=== PATIENT | female | born 1940 | race Caucasian/White ===

== ENCOUNTER → 2017-07-13 | Outpatient (CLI) | payer MEDICARE, OTHER | LOC: LAB SHORT 13:10 → OLS 13:10 | DX: R19.7 Diarrhea, unspecified (principal) | CPT/HCPCS: 87493 ==

== ENCOUNTER 2022-01-29 09:14 | Emergency (ER) | payer MEDICARE, OTHER ==
[~2022-01-29] VITALS: Ht 160 cm; Wt 59.0 kg
[2022-01-29 11:06] LABS: Hemoglobin 8.5 g/dL (11.5-16.0); Mean Corpuscular HGB 26.2 pg (26.0-34.0); Mean Corpuscular HGB Conc 32.7 g/dL (31.5-36.5); Mean Corpuscular Volume 80 fL (80-100); Mean Platelet Volume 9.5 fL (9.1-12.4); NRBC ABSOLUTE 0.05 K/mm3 (0.00-0.02); NRBC Auto 0.5 /100 WBC (0.0-0.2); Platelet Count 201 K/mm3 (150-400); RDW Coefficient Variation 17.7 % (11.7-14.2); RDW Standard Deviation 48.9 fL (35.1-46.3); Red Blood Cell Count 3.24 M/mm3 (3.80-5.20); White Blood Cell Count 9.47 K/mm3 (4.00-11.30)
[2022-01-29 11:11] LABS: International Normalized Ratio 1.06; Prothrombin Time Results 11.1 Sec (9.7-11.5)
[2022-01-29 11:30] LABS: BAND PERCENT MAN 4 % (0-8); BASOPHILS PERCENT MAN 0 % (0-2); EOSINOPHILS PERCENT MAN 0 % (0-6); LYMPHOCYTES % ATYPICAL MANUAL 1 % (0-0); LYMPHOCYTES ABSOLUTE MAN 0.66 K/mm3 (0.84-5.20); LYMPHOCYTES PERCENT MAN 6 % (21-46); MONOCYTES ABSOLUTE MAN 0.37 K/mm3 (0.16-1.47); MONOCYTES PERCENT MAN 4 % (4-13); NEUTROPHILS ABSOLUTE MAN 8.42 K/mm3 (1.96-9.15); SEG NEUTROPHILS PERCENT MAN 85 % (41-73); TOTAL CELLS COUNTED 100
[2022-01-29 11:43] LABS: Albumin, Blood 2.8 g/dL (3.4-5.0); Albumin/Globulin Ratio 0.7 (0.8-1.8); Bilirubin, Total 0.6 mg/dL (0.1-1.0); Bun/Creatinine Ratio 24.8 (12.0-20.0); Calcium, Blood 8.5 mg/dL (8.5-10.1); Creatinine, Blood 0.64 mg/dL (0.40-1.00); Globulin, Blood 3.8 g/dL (2.2-4.0); Potassium, Blood 4.1 mmol/L (3.5-5.5); Total Protein, Blood 6.6 g/dL (6.4-8.2)
[2022-01-29 14:13] LABS: IMMATURE RETIC FRACTION 35.9 % (2.3-16.0); RETIC HGB EQUIVALENT 31.6 pg (28.20-36.60); RETICULOCYTE ABSOLUTE 0.0521 M/mm3 (0.0200-0.1100); RETICULOCYTE COUNT PERCENT 1.67 % (0.50-2.50)
== END 2022-01-29 14:26 | disposition home or self-care (01) ==
LOC: ER 09:14
PROVIDERS: Emergency Medicine; Physician Assistant
DX: D64.9 Anemia, unspecified (principal); Z88.0 Allergy status to penicillin
CPT/HCPCS: 36415; 80053; 85025; 85045; 85610; 86850; 86900; 86901; 93005; 93010

== ENCOUNTER 2022-02-12 11:09 | Day surgery (SDC) | payer MEDICARE, OTHER ==
[~2022-02-12] VITALS: Ht 160 cm; Wt 57.4 kg
[2022-02-12] MEDS ORDERED: METF500 (11:41)
== END 2022-02-12 13:24 | disposition home or self-care (01) ==
LOC: ORSCSDS 11:09
PROVIDERS: Internal Medicine Gastroenterology
PROC: 0DJD8ZZ Inspection of Lower Intestinal Tract, Via Natural or Artificial Opening Endoscopic (ICD-10-PCS; principal; 2022-02-12 12:30)
PROC: 0DJ08ZZ Inspection of Upper Intestinal Tract, Via Natural or Artificial Opening Endoscopic (ICD-10-PCS; principal; 2022-02-12 12:30)
DX: D50.9 Iron deficiency anemia, unspecified (principal); Z85.038 Personal history of other malignant neoplasm of large intestine; Z80.0 Family history of malignant neoplasm of digestive organs; K29.70 Gastritis, unspecified, without bleeding; E11.9 Type 2 diabetes mellitus without complications; Z79.84 Long term (current) use of oral hypoglycemic drugs; Z79.899 Other long term (current) drug therapy
CPT/HCPCS: 82947; J0330; J0461; J2405; J2704; J7120; Q9968

== ENCOUNTER → 2022-02-16 | Outpatient (CLI) | payer MEDICARE, OTHER ==
[~2022-02-16] MED LIST: METF500
[2022-02-16 10:38] LABS: BASOPHILS ABSOLUTE AUTO 0.09 K/mm3 (0.00-0.23); BASOPHILS PERCENT AUTO 1 % (0-2); EOSINOPHILS ABSOLUTE AUTO 0.06 K/mm3 (0.00-0.68); EOSINOPHILS PERCENT AUTO 1 % (0-6); Hematocrit 26.8 % (33.0-51.0); Hemoglobin 8.6 g/dL (11.5-16.0); IMMATURE GRAN ABSOLUTE AUTO 0.06 K/mm3 (0.00-0.10); IMMATURE GRAN PERCENT AUTO 1 % (0-1); LYMPHOCYTES ABSOLUTE AUTO 3.25 K/mm3 (0.84-5.20); LYMPHOCYTES PERCENT AUTO 34 % (21-46); MONOCYTES ABSOLUTE AUTO 0.81 K/mm3 (0.16-1.47); MONOCYTES PERCENT AUTO 9 % (4-13); Mean Corpuscular HGB 27.2 pg (26.0-34.0); Mean Corpuscular HGB Conc 32.1 g/dL (31.5-36.5); Mean Corpuscular Volume 85 fL (80-100); Mean Platelet Volume 8.9 fL (9.1-12.4); NEUTROPHILS PERCENT AUTO 55 % (41-73); Platelet Count 672 K/mm3 (150-400); RDW Coefficient Variation 21.9 % (11.7-14.2); RDW Standard Deviation 67.3 fL (35.1-46.3); Red Blood Cell Count 3.16 M/mm3 (3.80-5.20); White Blood Cell Count 9.57 K/mm3 (4.00-11.30)
[2022-02-16 11:18] LABS: Percent Saturation 13.2 % (15.0-50.0)
== END | disposition home or self-care (01) ==
LOC: LAB SHORT 09:20
PROVIDERS: Physician Assistant Medical
DX: D50.8 Other iron deficiency anemias (principal)
CPT/HCPCS: 36415; 82728; 83540; 83550; 85025

== ENCOUNTER → 2022-04-16 | Outpatient (CLI) | payer MEDICARE, OTHER ==
[2022-04-16 16:12] LABS: Hematocrit 30.2 % (33.0-51.0); Hemoglobin 9.8 g/dL (11.5-16.0); Mean Corpuscular HGB Conc 32.5 g/dL (31.5-36.5); Mean Corpuscular Volume 80 fL (80-100); Mean Platelet Volume 9.9 fL (9.1-12.4); NRBC ABSOLUTE 0.12 K/mm3 (0.00-0.02); NRBC Auto 0.8 /100 WBC (0.0-0.2); Platelet Count 343 K/mm3 (150-400); RDW Standard Deviation 57.4 fL (35.1-46.3); Red Blood Cell Count 3.77 M/mm3 (3.80-5.20); White Blood Cell Count 14.37 K/mm3 (4.00-11.30)
[2022-04-16 16:26] LABS: Thyroxine (T4) 10.2 ug/dL (4.8-13.9)
[2022-04-16 16:39] LABS: Albumin, Blood 3.2 g/dL (3.4-5.0); Albumin/Globulin Ratio 0.8 (0.8-1.8); Bilirubin, Direct 0.2 mg/dL (0.0-0.3); Bilirubin, Indirect 0.3 mg/dL (0.1-0.7); Bilirubin, Total 0.5 mg/dL (0.1-1.0); Bun/Creatinine Ratio 14.8 (12.0-20.0); Calcium, Blood 8.8 mg/dL (8.5-10.1); Creatinine, Blood 0.54 mg/dL (0.40-1.00); Potassium, Blood 3.6 mmol/L (3.5-5.5); Thyroid Stimulating Hormone 5.05 uIU/mL (0.360-4.800); Total Protein, Blood 7.2 g/dL (6.4-8.2)
[2022-04-16 16:48] LABS: BAND PERCENT MAN 3 % (0-8); BASOPHILS PERCENT MAN 0 % (0-2); EOSINOPHILS ABSOLUTE MAN 0.28 K/mm3 (0.00-0.68); EOSINOPHILS PERCENT MAN 2 % (0-6); LYMPHOCYTES ABSOLUTE MAN 2.73 K/mm3 (0.84-5.20); LYMPHOCYTES PERCENT MAN 19 % (21-46); METAMYELOCYTE ABSOLUTE MAN 0.28 K/mm3 (0.00-0.00); METAMYELOCYTE PERCENT MAN 2 % (0-0); MONOCYTES PERCENT MAN 7 % (4-13); NEUTROPHILS ABSOLUTE MAN 10.05 K/mm3 (1.96-9.15); SEG NEUTROPHILS PERCENT MAN 67 % (41-73); TOTAL CELLS COUNTED 100
== END | disposition home or self-care (01) ==
LOC: LAB SHORT 15:44
PROVIDERS: Family Medicine
DX: C22.0 Liver cell carcinoma (principal); E03.9 Hypothyroidism, unspecified; R19.7 Diarrhea, unspecified; R63.4 Abnormal weight loss
CPT/HCPCS: 80053; 82248; 84436; 84443; 85025

== ENCOUNTER 2022-04-24 13:11 | Inpatient (IN) | payer MEDICARE, OTHER ==
[~2022-04-24] VITALS: Ht 160 cm; Wt 60.5 kg
[~2022-04-24 13:11] MED LIST changes: +METF500 PO
[2022-04-24 14:18] LABS: Hematocrit 29.7 % (33.0-51.0); Hemoglobin 9.4 g/dL (11.5-16.0); Mean Corpuscular HGB Conc 31.6 g/dL (31.5-36.5); White Blood Cell Count 12.14 K/mm3 (4.00-11.30)
[2022-04-24 14:27] LABS: Mean Corpuscular HGB 25.2 pg (26.0-34.0); Mean Corpuscular Volume 80 fL (80-100); Mean Platelet Volume 9.5 fL (9.1-12.4); NRBC ABSOLUTE 0.15 K/mm3 (0.00-0.02); NRBC Auto 1.2 /100 WBC (0.0-0.2); Platelet Count 339 K/mm3 (150-400); RDW Standard Deviation 56.6 fL (35.1-46.3); Red Blood Cell Count 3.73 M/mm3 (3.80-5.20)
[2022-04-24 14:51] LABS: Albumin, Blood 2.8 g/dL (3.4-5.0); Albumin/Globulin Ratio 0.7 (0.8-1.8); Bilirubin, Total 0.5 mg/dL (0.1-1.0); Bun/Creatinine Ratio 7.8 (12.0-20.0); Calcium, Blood 8.8 mg/dL (8.5-10.1); Creatinine, Blood 0.51 mg/dL (0.40-1.00); Globulin, Blood 4.2 g/dL (2.2-4.0); Potassium, Blood 3.2 mmol/L (3.5-5.5)
[2022-04-24 15:08] LABS: BAND PERCENT MAN 1 % (0-8); BASOPHILS ABSOLUTE MAN 0.12 K/mm3 (0.00-0.23); BASOPHILS PERCENT MAN 1 % (0-2); EOSINOPHILS ABSOLUTE MAN 0.24 K/mm3 (0.00-0.68); EOSINOPHILS PERCENT MAN 2 % (0-6); LYMPHOCYTES % ATYPICAL MANUAL 1 % (0-0); LYMPHOCYTES ABSOLUTE MAN 3.03 K/mm3 (0.84-5.20); LYMPHOCYTES PERCENT MAN 24 % (21-46); METAMYELOCYTE ABSOLUTE MAN 0.36 K/mm3 (0.00-0.00); METAMYELOCYTE PERCENT MAN 3 % (0-0); MONOCYTES ABSOLUTE MAN 0.24 K/mm3 (0.16-1.47); MONOCYTES PERCENT MAN 2 % (4-13); MYELOCYTE PERCENT MAN 5 % (0-0); NEUTROPHILS ABSOLUTE MAN 7.52 K/mm3 (1.96-9.15); SEG NEUTROPHILS PERCENT MAN 61 % (41-73); TOTAL CELLS COUNTED 100
[2022-04-24 18:00] LABS: Source, Urine Clean Catch
[2022-04-24 18:03] LABS: Appearance, Urine Clear (Clear); Bilirubin, Urine Neg (Neg); Blood, Urine Neg (Neg); Glucose Qualitative, Urine Neg (Neg); Ketones, Urine Neg (Neg); Leukocyte Esterase, Urine Neg (Neg); Nitrite, Urine Neg (Neg); Protein, Urine Neg (Neg); Urobilinogen, Urine NORM (Normal)
[2022-04-24 18:09] LABS: Color, Urine Pale Yellow (P-Yellow)
[2022-04-24] MEDS ORDERED: LEVSOD112 PO (23:56)
[2022-04-24] MEDS ORDERED: CITALOPRAM HBR10 MG PO (23:56)
[2022-04-24] MEDS ORDERED: OMEP20ER PO (23:57)
[2022-04-24] MEDS ORDERED: LOSA25 PO (23:58)
[2022-04-24] MEDS ORDERED: ESCITALOPRAM OXA5 MG PO (23:59)
[2022-04-24] MEDS ORDERED: FERSU300 PO (23:59)
--- NOTE | 2022-04-25 00:48 | NUR ---
PT HERE VIA [facility] FROM ER. PT TRANSFERRED TO MEDICAL FLOOR BED. PT IS ALERT AND ORIENTED X3. PT HAS A PUREWICK IN PLACE, DRAINING CLEAR YELLOW URINE, ATTENDS IN PLACE. PT REPORTS SHE HAS BEEN HAVING LOOSE STOOLS FOR APPX 2 WEEKS, HOWEVER SHE REPORTS IMPROVEMENT WITH DIARRHEA. SHE REPORTS LOOSE STOOL X1 TODAY. PT IS ON RA, LS ARE CLEAR, WITH FAINT RHONCHI TO BILATERAL BASES. PT'S SKIN COLOR IS PALE. SKIN IS WNL. BLE EDEMA - 2+. REVIEWED CALL LIGHT PROCEDURE WITH PT. AWAITING TELE BOX - PT HAS AN IRREGULAR HEART RHYTHM WITH AUSCULTATION. R AC IV SL'D. PT REPORTS SHE HAS HAD OCCASIONAL NAUSEA, DENIES ANY AT THIS TIME. PT DENIES HEADACHE OR CHEST PAIN. PT REPORTS LONG HISTORY OF TINGLING TO RLE. PT AMBULATES AT HOME WITH A WALKER. CALL LIGHT WITHIN REACH. PAS PLACED ON. BED ALARM ON FOR PT SAFETY. ICE CHIPS AT BEDSIDE PER REQUEST. BED IN LOW POSITION.
[2022-04-25 04:51] LABS: Hematocrit 28.2 % (33.0-51.0); Mean Corpuscular HGB 25.6 pg (26.0-34.0); Mean Corpuscular HGB Conc 31.9 g/dL (31.5-36.5); Mean Corpuscular Volume 80 fL (80-100); Mean Platelet Volume 9.3 fL (9.1-12.4); NRBC ABSOLUTE 0.11 K/mm3 (0.00-0.02); NRBC Auto 0.9 /100 WBC (0.0-0.2); Platelet Count 298 K/mm3 (150-400); RDW Coefficient Variation 20.1 % (11.7-14.2); RDW Standard Deviation 57.3 fL (35.1-46.3); Red Blood Cell Count 3.51 M/mm3 (3.80-5.20); White Blood Cell Count 12.07 K/mm3 (4.00-11.30)
--- NOTE | 2022-04-25 05:02 | NUR ---
SHIFT SUMMARY - NO ACUTE CHANGES SINCE ADMIT LAST NOC. PT WAS ABLE TO AMBULATE TO [facility] WITH WALKER AND SBA. PT HAD ONE LOOSE SMALL BROWN STOOL. PT DENIED ANY COMPLAINTS OF SOB, CHEST PAIN, OR HEADACHE. PT CONTINUES ON RA, AND TOLERATED AMBULATION TO [facility] WITHOUT DYSPNEA, RESPIRATIONS WERE EVEN AND UNLABORED. PT IS A PLEASANT OLDER LADY, ALERT AND ORIENTED X3. REQUESTED PT'S BRING HER MEDICATIONS IN TODAY (PT TO TALK TO HER ). CALL LIGHT WITHIN REACH. FLUIDS AT BEDSIDE. BED ALARM ON. PAS CONTINUE ON TO BLE. WILL CONTINUE TO MONITOR UNTIL AM SHIFT CHANGE.
[2022-04-25 05:11] LABS: BAND PERCENT MAN 7 % (0-8); BASOPHILS ABSOLUTE MAN 0.24 K/mm3 (0.00-0.23); BASOPHILS PERCENT MAN 2 % (0-2); EOSINOPHILS ABSOLUTE MAN 0.12 K/mm3 (0.00-0.68); EOSINOPHILS PERCENT MAN 1 % (0-6); LYMPHOCYTES ABSOLUTE MAN 1.81 K/mm3 (0.84-5.20); LYMPHOCYTES PERCENT MAN 15 % (21-46); METAMYELOCYTE ABSOLUTE MAN 0.24 K/mm3 (0.00-0.00); METAMYELOCYTE PERCENT MAN 2 % (0-0); MONOCYTES PERCENT MAN 5 % (4-13); MYELOCYTE ABSOLUTE MAN 0.24 K/mm3 (0.00-0.00); MYELOCYTE PERCENT MAN 2 % (0-0); NEUTROPHILS ABSOLUTE MAN 8.81 K/mm3 (1.96-9.15); SEG NEUTROPHILS PERCENT MAN 66 % (41-73); TOTAL CELLS COUNTED 100
[2022-04-25 05:20] LABS: Bun/Creatinine Ratio 9.5 (12.0-20.0); Creatinine, Blood 0.53 mg/dL (0.40-1.00); Magnesium, Blood 1.9 mg/dL (1.6-2.4); Potassium, Blood 3.5 mmol/L (3.5-5.5); Thyroid Stimulating Hormone 5.21 uIU/mL (0.360-4.800)
[2022-04-25] MEDS ORDERED: CALCIUM 500 MG1 EAC2 PO (11:32)
[2022-04-25] MEDS ORDERED: MULVITA PO (11:32)
[2022-04-25] MEDS ORDERED: GLUC500 PO (11:33)
[2022-04-25] MEDS ORDERED: GABA100 PO (11:36)
[2022-04-26 06:48] LABS: Bun/Creatinine Ratio 13.1 (12.0-20.0); Calcium, Blood 8.2 mg/dL (8.5-10.1); Creatinine, Blood 0.61 mg/dL (0.40-1.00); Potassium, Blood 3.1 mmol/L (3.5-5.5)
--- NOTE | 2022-04-26 17:01 | NUR ---
Received report from ongoing nurse. Pt resting comfortably in bed. VSS. Will continue to monitor. Discharge orders given to patient and family members. IV taken out. Medications sent to [facility]
== END 2022-04-26 17:30 | disposition home or self-care (01) | DRG 291 ==
LOC: ER 13:11 → MEDS 23:45
PROVIDERS: Student in an Organized Health Care Education/Training Program; ADMIT Internal Medicine
DX: I11.0 Hypertensive heart disease with heart failure (principal); I50.33 Acute on chronic diastolic (congestive) heart failure; C41.2 Malignant neoplasm of vertebral column; N39.0 Urinary tract infection, site not specified; R01.1 Cardiac murmur, unspecified; I48.0 Paroxysmal atrial fibrillation; I27.20 Pulmonary hypertension, unspecified; E87.6 Hypokalemia; I49.9 Cardiac arrhythmia, unspecified; E11.9 Type 2 diabetes mellitus without complications; R09.02 Hypoxemia; D50.9 Iron deficiency anemia, unspecified; Z92.21 Personal history of antineoplastic chemotherapy; Z79.84 Long term (current) use of oral hypoglycemic drugs; Z88.0 Allergy status to penicillin; Z91.041 Radiographic dye allergy status; Z90.49 Acquired absence of other specified parts of digestive tract; Z98.890 Other specified postprocedural states; Z85.038 Personal history of other malignant neoplasm of large intestine; Z85.850 Personal history of malignant neoplasm of thyroid; Z85.05 Personal history of malignant neoplasm of liver; Z96.619 Presence of unspecified artificial shoulder joint
CPT/HCPCS: 36415; 71046; 80048; 80053; 81003; 82947; 83036; 83605; 83735; 83880; 84443; 84484; 85025; 87086; 93005; 93010; 93306; 93356; 96374; 96375; 99285-25; A9270; J1650; J1940; J2405